=== PATIENT | female | born 1945 | race Two or more races ===

== ENCOUNTER 2023-01-10 08:20 | Outpatient (CLI) | payer OTHER | END 2023-01-10 08:23 | disposition home or self-care (01) | LOC: SONOGRAMA 08:20 | PROVIDERS: ATTEND Pathology Anatomic Pathology & Clinical Pathology | DX: D11.0 Benign neoplasm of parotid gland (principal); D36.0 Benign neoplasm of lymph nodes; R59.0 Localized enlarged lymph nodes ==